=== PATIENT | female | born 2000 | race Caucasian/White ===

== ENCOUNTER 2022-07-25 16:10 | Emergency (ER) | payer OTHER, SELFPAY | END 2022-07-25 17:07 | disposition home or self-care (01) | LOC: NAV ERS 16:10 | DX: B35.4 Tinea corporis (principal); J45.909 Unspecified asthma, uncomplicated; F17.210 Nicotine dependence, cigarettes, uncomplicated; Z20.822 Contact with and (suspected) exposure to COVID-19 | CPT/HCPCS: 99283; U0003; U0005 ==

== ENCOUNTER 2023-03-14 16:05 | Emergency (ER) | payer SELFPAY | END 2023-03-14 16:30 | disposition home or self-care (01) | LOC: NAV ERS 16:05 | DX: K52.9 Noninfective gastroenteritis and colitis, unspecified (principal); F17.210 Nicotine dependence, cigarettes, uncomplicated | CPT/HCPCS: 99283 ==